=== PATIENT | female | born 1955 | race Caucasian/White ===

== ENCOUNTER 2018-11-14 05:56 | Day surgery (SDC) | payer BC ==
[2018-11-11 14:25] VITALS: BMI 27.1
[2018-11-14] MEDS ORDERED: ceFAZolin SODIUM 1 GM VIAL ONE ×2 (07:16→08:03)
[2018-11-14] MEDS ORDERED: PROPOFOL 20 ML ONE (07:16)
[2018-11-14] MEDS ORDERED: MIDAZOLAM HCL 2 MG/2 ML SINGLE DOSE VIAL ONE (07:16)
[2018-11-14] MEDS ORDERED: SUCCINYLCHOLINE CHLORIDE 200 MG/10 ML SYRINGE ONE (07:17)
[2018-11-14] MEDS ORDERED: BUPIVACAINE HCL/PF 2.5 MG/ML - 30 ML VIAL IJ ONE (07:22)
[2018-11-14] MEDS ORDERED: LIDOCAINE HCL 1% PRESERVATIVE FREE - 30ML VIAL ONE (07:22)
[2018-11-14] MEDS ORDERED: LIDOCAINE HCL 2% (20ML MULTI-DOSE VIAL) NR ONE (07:23)
[2018-11-14] MEDS ORDERED: ONDANSETRON 4 MG/2 ML VIAL ONE (07:49)
[2018-11-14] MEDS ORDERED: DEXAMETHASONE SOD PHOSPHATE 4 MG/1 ML VIAL ONE (07:50)
[2018-11-14 08:51] VITALS: TEMP 98.2
[2018-11-14 13:12] VITALS: BP 118/72; PULSE 64
--- NOTE | 2018-11-15 09:19 | OP ---
DATE OF OPERATION: 11/14/2018 SURGEON: Case Carmen MD ASSISSTANT: AIMEE Alvarado PREOPERATIVE DIAGNOSIS: 1. Right carpal tunnel syndrome. 2. Right ring finger tenosynovitis/trigger-finger. POSTOPERATIVE DIAGNOSIS: 1. Right carpal tunnel syndrome. 2. Right ring finger tenosynovitis/trigger-finger. PROCEDURE: 1. Right carpal tunnel release (CPT code 67745). 2. Right middle finger trigger-finger release (CPT code 22594). FINDINGS: 1. Thickened A1 briseida with impingement on flexor tendons, right middle finger. 2. Thickened transcarpal ligament with impingement on median nerve. DESCRIPTION OF PROCEDURE: Under sterile conditions, right the upper extremity was prepped and draped in a sterile fashion. Incision was made along the longitudinal portion of the carpal tunnel. A longitudinal incision was made along the proximal portion of the palm, following the palm crease. This was taken down to the transcarpal ligament, which was released initially with scalpel and then extended proximally and distally using blunt tenotomy scissors. The median nerve was identified and completely released from impingement by the transcarpal ligament. The wound was then irrigated with copious amounts of irrigation. Skin was closed with 5-0 nylon in single interrupted sutures. The PA listed above was present and assisted at surgery. Their presence was absolutely medically necessary for the completion of the procedure. They helped hold the arthroscopy, pass instruments (and implants when indicated) and the procedure could not have been completed without their assistance. ADDENDUM: After the carpal tunnel release, an incision was made along the distal palmar crease at the A1 briseida. A1 briseida was identified. An incision was made, extended proximally and distally using blunt tenotomy scissors. Minor fraying was debrided across the tendons. It was brought out the wound using curved hemostat and minor fraying was debrided. Wounds were irrigated with copious amounts of irrigation, and both incisions were closed with 4-0 nylon in single interrupted sutures. The PA listed above was present and assisted at surgery. Their presence was absolutely medically necessary for the completion of the procedure. They helped hold the arthroscopy, pass instruments (and implants when indicated) and the procedure could not have been completed without their assistance. CASE CARMEN M.D. JOSE [id number]
== END 2018-11-14 13:10 | disposition home or self-care (01) ==
LOC: FASU 05:56
PROVIDERS: ATTEND Orthopaedic Surgery
PROC: 01N50ZZ Release Median Nerve, Open Approach (ICD-10-PCS; principal; 2018-11-14 08:11)
PROC: 0LN70ZZ Release Right Hand Tendon, Open Approach (ICD-10-PCS; 2018-11-14 08:11)
DX: G56.01 Carpal tunnel syndrome, right upper limb (principal); M65.331 Trigger finger, right middle finger